=== PATIENT | male | born 1935 | race Hispanic/Latino ===

== ENCOUNTER → 2018-03-28 12:53 | Outpatient (CLI) | payer OTHER, SELFPAY ==
--- NOTE | 2018-03-28 | DI.ECHO.S_ITS ---
[facility] +---------+ : : [address] : [place] [address] : : : : [id number] : : : : Phone: [phone]---------+ Echocardiogram Report + + :Name: RESHMA LOUIS Study Date: 03/28/2018 Height: 65 in : :[facility] Weight: 202 lb : : Gender: Male BSA: 2.0 m2 : :: 1935 Age: 82 yrs BP: 180/58 mmHg: :Reason For Study: Edema : : Performed By: Praveena Groves : :Referring: MIGEUL RIVERA : + + Interpretation Summary The left ventricle is normal in size, wall thickness, and systolic function without any focal wall motion abnormalities. The ejection fraction is estimated to be 60-65%. Assessment of diastolic parameters indicates a relaxation abnormality of the left ventricle, consistent with normal filling pressures. The right ventricle grossly appears normal in size with probable normal systolic function. Right ventricular systolic pressure is estimated to be 30 mmHg plus the clinically estimated CVP which cannot be estimated on this exam. The left atrium is moderately dilated. Right atrial size is normal. There is moderate aortic stenosis. The calculated aortic valve area is 1.1 cm2. The peak aortic velocity is 2.8 m/sec. There is moderate aortic regurgitation. There is no other significant valvular heart disease. The aortic root is normal size. Procedure: A two-dimensional transthoracic echocardiogram with color flow and Doppler was performed. The study quality was technically adequate. There is no prior echocardiogram noted for this patient. The patient was in normal sinus rhythm during the exam. The patient had occasional PVCs during the exam. Left Ventricle: The left ventricle is normal in size, wall thickness, and systolic function without any focal wall motion abnormalities. The ejection fraction is estimated to be 60-65%. Assessment of diastolic parameters indicates a relaxation abnormality of the left ventricle, consistent with normal filling pressures. Right Ventricle: The right ventricle grossly appears normal in size with probable normal systolic function. Atria: The left atrium is moderately dilated. Right atrial size is normal. The interatrial septum is intact with no evidence for an atrial septal defect. Mitral Valve: The mitral valve leaflets appear mildly thickened, but open well. There is no mitral regurgitation noted. Aortic Valve: The aortic valve is not well visualized. There is moderate aortic stenosis. The calculated aortic valve area is 1.1 cm2. The peak aortic velocity is 2.8 m/sec. The aortic valve mean gradient is 15 mmHg. Severity ratio is 0.31. There is moderate aortic regurgitation. There is mild holodiastolic flow reversal in the descending thoracic aorta. Tricuspid Valve: The tricuspid valve is normal in structure and function. There is a trace or physiologic amount of tricuspid regurgitation. Right ventricular systolic pressure is estimated to be 30 mmHg plus the clinically estimated CVP which cannot be estimated on this exam. Pulmonic Valve: The pulmonic valve is not well visualized. There is a trace or physiologic amount of pulmonic regurgitation. There is no other significant valvular heart disease. Great Vessels: The aortic root is normal size. The ascending aorta is at the upper limits of normal in size. The inferior vena cava was not visualized. Pericardium/ Pleura There is no pericardial effusion. There is no pleural effusion. MMode/2D Measurements & Calculations LVIDd: 6.0 cm LVOT diam: 2.2 cm LVIDs: 4.1 cm Ao root diam: 3.4 cm FS: 32.2 % Aortic Jxn: 2.9 cm IVSd: 1.1 cm asc Aorta Diam: 3.5 cm LVPWd: 0.95 cm LV zavaleta. diameter/BSA (cm/m^2): 3.0 LV sys. diameter/BSA (cm/m^2): 2.1 LA dimension: 3.8 cm RA long axis: 4.1 cm LA A2 area: 24.9 cm2 RA area: 14.9 cm2 LA A4 area: 26.1 cm2 RA vol: 45.9 ml LA length (vol): 6.0 cm RA : 23.1 ml/m2 LA vol: 91.4 ml IVC diam: 3.1 cm LA vol index: 46.0 ml/m2 RVDd major: 5.6 cm RVD1 (basal): 3.8 cm RVD2 (mid): 3.6 cm Doppler Measurements & Calculations Ao V2 max: 279.7 cm/sec LVOT Max Kerwin: 77.8 cm/sec Ao V2 mean: 173.0 cm/sec LV V1 max P.4 mmHg Ao max P.3 mmHg LV V1 VTI: 21.4 cm Ao mean P.5 mmHg DACIA(I,D): 1.1 cm2 Ao V2 VTI: 69.1 cm DACIA(V,D): 1.0 cm2 sev ratio: 0.31 DACIA indexed to BSA (cm^2/m^2): 0.57 AI P1/2t: 436.2 msec AI dec slope: 304.3 cm/sec2 MV E max kerwin: 65.6 cm/sec TR max kerwin: 274.9 cm/sec MV A max kerwin: 105.5 cm/sec TR max P.2 mmHg MV E/A: 0.62 PA V2 max: 69.7 cm/sec Med Peak E' Kerwin: 4.6 cm/sec PA V2 mean: 41.5 cm/sec E/E' med: 14.2 PA mean P.88 mmHg Lat Peak E' Kerwin: 6.4 cm/sec PA Accel Time: 0.10 sec E/E' lat: 10.2 E/e' average: 12.2 MV dec time: 0.29 sec MV P1/2t: 86.5 msec MV P1/2t max kerwin: 66.0 cm/sec MVA(P1/2t): 2.5 cm2 Reading Physician:GEOVANI
== END ==
PROVIDERS: Visit Provider Student in an Organized Health Care Education/Training Program
DX: I35.0 Nonrheumatic aortic (valve) stenosis (principal); R60.9 Edema, unspecified
CPT/HCPCS: 93306

== ENCOUNTER → 2019-12-20 09:58 | Outpatient (CLI) | payer MEDICARE, SELFPAY ==
--- NOTE | 2019-12-20 10:05 | DI.MRI.S_ITS ---
PROCEDURE: MR STROKE Pre- and post-contrast brain MRI, non-contrast brain MR angiogram, pre- and postcontrast neck MR angiogram INDICATIONS: Cerebral infarction, unspecified TECHNIQUE: Brain: Noncontrast axial T1 spin echo, axial T2 fast spin echo, sagittal and axial FLAIR, coronal T2 fast spin echo, axial gradient echo, axial diffusion and ADC through the brain. After the administration of contrast, axial 3D VIBE of the cranial vasculature and brain. Brain MRA: Non-contrast 3-D time of flight MR angiogram, with multiple pmsehvi-stoljhzwl-nfikrumwbf (MIP) reformats performed. Neck MRA: Axial and sagittal TruFISP through the neck. Coronal dynamic MR angiogram during administration of contrast in the arterial and venous phases, with 3-dimenstional oivlqkd-vfzxcqejv-fmpdzpcwmy (MIP) reformats constructed from subtraction images. COMPARISON: [facility] , MR, BRAIN W&W/O CONTRAST, 04/07/2010, 11:34. FINDINGS: Image quality: Suboptimal due to difficulties using the appropriate surface coil. BRAIN: CSF spaces: Ventricles are normal in size and shape. Basal cisterns are patent. No extra-axial fluid collections. 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 It measures 0.8 x 1.0 cm This is slightly increased in size. There is also prominent right sided choroid plexus enhancement seen within the temporal horn. No intracranial bleeds or mass effects. Tanner-white matter interface is normal. Diffusion weighted images show no acute ischemic insults. Brainstem appears normal. Normal intravascular flow voids are present. No abnormal intracranial enhancement. Skull and face: Calvarial marrow signal is normal. Orbits appear normal. Sinuses: Sinuses and mastoids are clear. BRAIN MR ANGIOGRAM: Anterior circulation: Intracranial internal carotid arteries are normal in size and enhancement. The flow within the paired anterior cerebral arteries is normal and symmetric. The flow within the middle cerebral arteries is normal and symmetric. The anterior communicating artery is seen. No stenoses, occlusions, or aneurysms. Posterior circulation: The visualized portions of the vertebral arteries demonstrate normal caliber, and join to form a tortuous basilar artery. There is probably in plane saturation artifact accounting for decreased visualization of the proximal segment The flow within the posterior cerebral arteries is normal and symmetric. No stenoses, occlusions, or aneurysms. NECK MR ANGIOGRAM: Carotids: Great vessels demonstrate a bovine anatomy as they arise from the aortic arch. The origins of the common carotid arteries appear patent. Tortuous appearance of the left common carotid artery which otherwise appears patent on. The bifurcation regions appear normal bilaterally. The internal carotid arteries demonstrate normal course and caliber. Posterior circulation: The origins of the vertebral arteries appear patent. More superior portions of both vertebral arteries demonstrate normal course and caliber. Tortuous appearing basilar artery, which is not well-visualized on the sbuk-oq-nuviot pulse sequences which is probably related to in plane saturation artifact reformations however appears grossly patent on the source images, and post contrast-enhanced pulse sequences. Miscellaneous: Subclavian arteries appear patent. Pre-contrast images through the neck show no soft tissue abnormalities. IMPRESSION: BRAIN MRI: Redemonstration of right posterior agnieszka presumed cavernoma, which is slightly increased in size since 04/07/10. 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 BRAIN MR ANGIOGRAM: No focal stenosis or occlusion. NECK MR ANGIOGRAM: No ICA stenosis identified. Dictated by: Teddy Mcintosh M.D. on 12/20/2019 at 13:20 Approved by: Teddy Mcintosh M.D. on 12/20/2019 at 13:44
== END ==
PROVIDERS: PCP Student in an Organized Health Care Education/Training Program; Referring Provider Student in an Organized Health Care Education/Training Program; Visit Provider Student in an Organized Health Care Education/Training Program
DX: I63.9 Cerebral infarction, unspecified (principal)
CPT/HCPCS: 70548; 70553; A9579